=== PATIENT | male | born 1930 | race Caucasian/White ===

== ENCOUNTER 2018-03-17 05:08 | Inpatient (IN) | payer MEDICARE ==
[2018-03-17] MEDS ORDERED: SODIUM CHLORIDE 0.9% 500 ML IV ONE ×2 (05:15→06:07)
--- NOTE | 2018-03-17 05:18 | ED ---
General Adult HPI - General Stated complaint: abd pain Time Seen by Provider: 03/17/18 05:11 Source: EMS, RN notes reviewed, old records reviewed - History of Present Illness Initial comments: 87-year-old male presents with altered mental status. Patient woke from sleep, complained of abdominal pain. Patient's spouse called EMS as patient seemed more confused than usual. He does have history of dementia. Patient is unable to verbalize of pain complaint at the time my evaluation. Exact baseline mental status is unknown but patient does have reported history of dementia. EMS report hypotension during transport. Other vital signs are stable. - Related Data Home Medications Medication Instructions Recorded Confirmed ALPRAZolam [Xanax] 0.25 mg PO DAILY PRN 03/17/18 03/17/18 Apixaban [Eliquis] 2.5 mg PO BID 03/17/18 03/17/18 Finasteride [Proscar] 5 mg PO HS 03/17/18 03/17/18 Lisinopril [Zestril] 30 mg PO HS 03/17/18 03/17/18 Mirabegron [Myrbetriq] 50 mg PO DAILY 03/17/18 03/17/18 Rivastigmine [Rivastigmine 1 patch TRANSDERM DAILY 03/17/18 03/17/18 4.6MG/24Hr] Simvastatin 40 mg PO HS 03/17/18 03/17/18 Tamsulosin [Flomax] 0.4 mg PO HS 03/17/18 03/17/18 Allergies Allergy/AdvReac Type Severity Reaction Status Date / Time No Known Allergies Allergy Verified 03/17/18 05:44 Review of Systems ROS Statement: Those systems with pertinent positive or pertinent negative responses have been documented in the HPI. ROS Other: All systems not noted in ROS Statement are negative. Past Medical History Past Medical History: Coronary Artery Disease (CAD), Dementia General Exam General appearance: lethargic Head exam: Present: atraumatic, normocephalic Eye exam: Present: normal appearance, PERRL ENT exam: Present: mucous membranes dry Neck exam: Present: normal inspection. Absent: tenderness, meningismus Respiratory exam: Present: normal lung sounds bilaterally. Absent: respiratory distress, wheezes Cardiovascular Exam: Present: regular rate, normal rhythm GI/Abdominal exam: Present: soft. Absent: distended, tenderness, guarding, rebound Extremities exam: Present: normal inspection, normal capillary refill. Absent: pedal edema Neurological exam: Present: other (Patient exam nonfocal, he is moving all extremities symmetrically). Absent: oriented X3 Skin exam: Present: warm, dry, intact. Absent: cyanosis Course Vital Signs 03/17/18 03/17/18 03/17/18 05:10 05:35 06:13 Temperature 96.8 F L Pulse Rate 69 69 62 Pulse Rate [ Bilateral Supine Radial] Respiratory 18 18 18 Rate Blood Pressure 71/49 88/52 129/68 O2 Sat by Pulse 99 97 99 Oximetry 03/17/18 03/17/18 06:18 06:58 Temperature Pulse Rate 65 Pulse Rate [ 70 Bilateral Supine Radial] Respiratory 18 Rate Blood Pressure 124/62 O2 Sat by Pulse 100 Oximetry - Reevaluation(s) Reevaluation #1: 03/17/18 05:41 Further history obtained from the patient's spouse who states he was complaining of abdominal pain and back pain at the onset of symptoms. She reports he was diaphoretic. EKG Findings - EKG Comments: EKG Findings:: EKG: Ventricular paced rhythm, rate of 63, QRS duration 172, QTC 507 Medical Decision Making - Medical Decision Making 87-year-old male presenting with altered mental status, hypotension, and abdominal pain and back pain. Patient has history of abdominal aortic aneurysm , CT angiography is ordered. Results show infrarenal abdominal aortic aneurysm with extravasation of contrast and a large volume of blood in the right hemiabdomen. Dr. Munroe is immediately called, initially plan is for transfer , however after discussion with the family it is decided that no surgical intervention will be pursued at this time. Patient will be admitted for monitoring and comfort measures. Patient's is at bedside and agreeable with this plan. Dr. Munroe will be on consult. - Lab Data Result diagrams: 03/17/18 05:20 03/17/18 05:20 Lab Results 03/17/18 03/17/18 03/17/18 Range/Units 05:18 05:20 05:20 WBC 9.0 (3.8-10.6) k/uL RBC 3.69 L (4.30-5.90) m/uL Hgb 11.9 L (13.0-17.5) gm/dL Hct 35.5 L (39.0-53.0) % MCV 96.0 (80.0-100.0) fL MCH 32.3 (25.0-35.0) pg MCHC 33.6 (31.0-37.0) g/dL RDW 13.4 (11.5-15.5) % Plt Count 102 L (150-450) k/uL Neutrophils % 73 % Lymphocytes % 19 % Monocytes % 5 % Eosinophils % 1 % Basophils % 0 % Neutrophils # 6.6 (1.3-7.7) k/uL Lymphocytes # 1.7 (1.0-4.8) k/uL Monocytes # 0.5 (0-1.0) k/uL Eosinophils # 0.1 (0-0.7) k/uL Basophils # 0.0 (0-0.2) k/uL PT (9.0-12.0) sec INR (<1.2) APTT (22.0-30.0) sec VBG pH (7.31-7.41) VBG pCO2 (37-51) mmHg VBG HCO3 (24-28) mmol/L Sodium (137-145) mmol/L Potassium (3.5-5.1) mmol/L Chloride (98-107) mmol/L Carbon Dioxide (22-30) mmol/L Anion Gap mmol/L BUN (9-20) mg/dL Creatinine (0.66-1.25) mg/dL Est GFR (CKD-EPI)AfAm (>60 ml/min/1.73 sqM) Est GFR (CKD-EPI)NonAf (>60 ml/min/1.73 sqM) Glucose (74-99) mg/dL POC Glucose (mg/dL) 181 H (75-99) mg/dL POC Glu [employer]er Anju Mandel Plasma Lactic Acid Lucius (0.7-2.0) mmol/L Calcium (8.4-10.2) mg/dL Total Bilirubin (0.2-1.3) mg/dL AST (17-59) U/L ALT (21-72) U/L Alkaline Phosphatase (38-126) U/L Total Creatine Kinase 103 (55-170) U/L CK-MB (CK-2) 3.2 H* (0.0-2.4) ng/mL CK-MB (CK-2) Rel Index 3.1 Troponin I 0.065 H* (0.000-0.034) ng/mL Total Protein (6.3-8.2) g/dL Albumin (3.5-5.0) g/dL Urine Color Urine Appearance (Clear) Urine pH (5.0-8.0) Ur Specific [place] (1.001-1.035) Urine Protein (Negative) Urine Glucose (UA) (Negative) Urine Ketones (Negative) Urine Blood (Negative) Urine Nitrite (Negative) Urine Bilirubin (Negative) Urine Urobilinogen (<2.0) mg/dL Ur Leukocyte Esterase (Negative) Urine RBC (0-5) /hpf Urine WBC (0-5) /hpf Ur Squamous Epith Cells (0-4) /hpf Amorphous Sediment (None) /hpf Hyaline Casts (0-2) /lpf Urine Mucus (None) /hpf Urine Opiates Screen (NotDetected) Ur Oxycodone Screen (NotDetected) Urine Methadone Screen (NotDetected) Ur Propoxyphene Screen (NotDetected) Ur Barbiturates Screen (NotDetected) U Tricyclic Antidepress (NotDetected) Ur Phencyclidine Scrn (NotDetected) Ur Amphetamines Screen (NotDetected) U Methamphetamines Scrn (NotDetected) U Benzodiazepines Scrn (NotDetected) Urine Cocaine Screen (NotDetected) U Marijuana (THC) Screen (NotDetected) 03/17/18 03/17/18 03/17/18 Range/Units 05:20 05:20 05:20 WBC (3.8-10.6) k/uL RBC (4.30-5.90) m/uL Hgb (13.0-17.5) gm/dL Hct (39.0-53.0) % MCV (80.0-100.0) fL MCH (25.0-35.0) pg MCHC (31.0-37.0) g/dL RDW (11.5-15.5) % Plt Count (150-450) k/uL Neutrophils % % Lymphocytes % % Monocytes % % Eosinophils % % Basophils % % Neutrophils # (1.3-7.7) k/uL Lymphocytes # (1.0-4.8) k/uL Monocytes # (0-1.0) k/uL Eosinophils # (0-0.7) k/uL Basophils # (0-0.2) k/uL PT 11.9 (9.0-12.0) sec INR 1.3 H (<1.2) APTT 21.6 L (22.0-30.0) sec VBG pH (7.31-7.41) VBG pCO2 (37-51) mmHg VBG HCO3 (24-28) mmol/L Sodium 136 L (137-145) mmol/L Potassium 4.1 (3.5-5.1) mmol/L Chloride 106 (98-107) mmol/L Carbon Dioxide 21 L (22-30) mmol/L Anion Gap 9 mmol/L BUN 23 H (9-20) mg/dL Creatinine 1.20 (0.66-1.25) mg/dL Est GFR (CKD-EPI)AfAm 63 (>60 ml/min/1.73 sqM) Est GFR (CKD-EPI)NonAf 54 (>60 ml/min/1.73 sqM) Glucose 188 H (74-99) mg/dL POC Glucose (mg/dL) (75-99) mg/dL POC Glu [employer] As[employer]er ID Plasma Lactic Acid Lucius 3.3 H* (0.7-2.0) mmol/L Calcium 8.2 L (8.4-10.2) mg/dL Total Bilirubin 0.7 (0.2-1.3) mg/dL AST 28 (17-59) U/L ALT 39 (21-72) U/L Alkaline Phosphatase 41 (38-126) U/L Total Creatine Kinase (55-170) U/L CK-MB (CK-2) (0.0-2.4) ng/mL CK-MB (CK-2) Rel Index Troponin I (0.000-0.034) ng/mL Total Protein 5.1 L (6.3-8.2) g/dL Albumin 3.0 L (3.5-5.0) g/dL Urine Color Urine Appearance (Clear) Urine pH (5.0-8.0) Ur Specific [place] (1.001-1.035) Urine Protein (Negative) Urine Glucose (UA) (Negative) Urine Ketones (Negative) Urine Blood (Negative) Urine Nitrite (Negative) Urine Bilirubin (Negative) Urine Urobilinogen (<2.0) mg/dL Ur Leukocyte Esterase (Negative) Urine RBC (0-5) /hpf Urine WBC (0-5) /hpf Ur Squamous Epith Cells (0-4) /hpf Amorphous Sediment (None) /hpf Hyaline Casts (0-2) /lpf Urine Mucus (None) /hpf Urine Opiates Screen (NotDetected) Ur Oxycodone Screen (NotDetected) Urine Methadone Screen (NotDetected) Ur Propoxyphene Screen (NotDetected) Ur Barbiturates Screen (NotDetected) U Tricyclic Antidepress (NotDetected) Ur Phencyclidine Scrn (NotDetected) Ur Amphetamines Screen (NotDetected) U Methamphetamines Scrn (NotDetected) U Benzodiazepines Scrn (NotDetected) Urine Cocaine Screen (NotDetected) U Marijuana (THC) Screen (NotDetected) 03/17/18 03/17/18 Range/Units 05:20 05:20 WBC (3.8-10.6) k/uL RBC (4.30-5.90) m/uL Hgb (13.0-17.5) gm/dL Hct (39.0-53.0) % MCV (80.0-100.0) fL MCH (25.0-35.0) pg MCHC (31.0-37.0) g/dL RDW (11.5-15.5) % Plt Count (150-450) k/uL Neutrophils % % Lymphocytes % % Monocytes % % Eosinophils % % Basophils % % Neutrophils # (1.3-7.7) k/uL Lymphocytes # (1.0-4.8) k/uL Monocytes # (0-1.0) k/uL Eosinophils # (0-0.7) k/uL Basophils # (0-0.2) k/uL PT (9.0-12.0) sec INR (<1.2) APTT (22.0-30.0) sec VBG pH 7.28 L (7.31-7.41) VBG pCO2 53 H (37-51) mmHg VBG HCO3 24 (24-28) mmol/L Sodium (137-145) mmol/L Potassium (3.5-5.1) mmol/L Chloride (98-107) mmol/L Carbon Dioxide (22-30) mmol/L Anion Gap mmol/L BUN (9-20) mg/dL Creatinine (0.66-1.25) mg/dL Est GFR (CKD-EPI)AfAm (>60 ml/min/1.73 sqM) Est GFR (CKD-EPI)NonAf (>60 ml/min/1.73 sqM) Glucose (74-99) mg/dL POC Glucose (mg/dL) (75-99) mg/dL POC Glu [employer]ical [employer] As[employer]er ID Plasma Lactic Acid Lucius (0.7-2.0) mmol/L Calcium (8.4-10.2) mg/dL Total Bilirubin (0.2-1.3) mg/dL AST (17-59) U/L ALT (21-72) U/L Alkaline Phosphatase (38-126) U/L Total Creatine Kinase (55-170) U/L CK-MB (CK-2) (0.0-2.4) ng/mL CK-MB (CK-2) Rel Index Troponin I (0.000-0.034) ng/mL Total Protein (6.3-8.2) g/dL Albumin (3.5-5.0) g/dL Urine Color Yellow Urine Appearance Cloudy (Clear) Urine pH 5.5 (5.0-8.0) Ur Specific [place] 1.014 (1.001-1.035) Urine Protein 2+ H (Negative) Urine Glucose (UA) Negative (Negative) Urine Ketones Trace H (Negative) Urine Blood Negative (Negative) Urine Nitrite Negative (Negative) Urine Bilirubin Negative (Negative) Urine Urobilinogen <2.0 (<2.0) mg/dL Ur Leukocyte Esterase Negative (Negative) Urine RBC 1 (0-5) /hpf Urine WBC 1 (0-5) /hpf Ur Squamous Epith Cells 4 (0-4) /hpf Amorphous Sediment Occasional H (None) /hpf Hyaline Casts 50 H (0-2) /lpf Urine Mucus Moderate H (None) /hpf Urine Opiates Screen Not Detected (NotDetected) Ur Oxycodone Screen Not Detected (NotDetected) Urine Methadone Screen Not Detected (NotDetected) Ur Propoxyphene Screen Not Detected (NotDetected) Ur Barbiturates Screen Not Detected (NotDetected) U Tricyclic Antidepress Not Detected (NotDetected) Ur Phencyclidine Scrn Not Detected (NotDetected) Ur Amphetamines Screen Not Detected (NotDetected) U Methamphetamines Scrn Not Detected (NotDetected) U Benzodiazepines Scrn Detected H (NotDetected) Urine Cocaine Screen Not Detected (NotDetected) U Marijuana (THC) Screen Not Detected (NotDetected) Critical Care Time Critical Care Time: Yes Total Critical Care Time: 35 Disposition Clinical Impression: Leaking abdominal aortic aneurysm Disposition: ADMITTED IP TO THIS [facility] Condition: Poor Is patient prescribed a controlled substance at d/c from ED?: No Referrals: None,Stated [REFERRING] - 1-2 days Decision to Admit Reason: Admit from EC Decision Date: 03/17/18 Decision Time: 07:15
[2018-03-17 05:20] VITALS: RESP 18; TEMP 96.8
[2018-03-17 05:22] LABS: Glucose,Whole Blood 181 mg/dL (75-99)
[2018-03-17 05:41] LABS: Basophils % (A) 0 %; Eosinophils # (A) 0.1 k/uL (0-0.7); Eosinophils % (A) 1 %; HCT 35.5 % (39.0-53.0); HGB 11.9 gm/dL (13.0-17.5); Lymphocytes # (A) 1.7 k/uL (1.0-4.8); Lymphocytes % (A) 19 %; MCH 32.3 pg (25.0-35.0); MCHC 33.6 g/dL (31.0-37.0); Mean Platelet Volume 7.7; Monocytes # (A) 0.5 k/uL (0-1.0); Monocytes % (A) 5 %; Neutrophils # (A) 6.6 k/uL (1.3-7.7); Neutrophils % (A) 73 %; Platelet Count 102 k/uL (150-450); RBC 3.69 m/uL (4.30-5.90); RDW 13.4 % (11.5-15.5)
[2018-03-17 05:51] LABS: Calcium 8.2 mg/dL (8.4-10.2); Potassium 4.1 mmol/L (3.5-5.1); Total Bilirubin 0.7 mg/dL (0.2-1.3); Total Protein 5.1 g/dL (6.3-8.2)
[2018-03-17 05:56] LABS: INR 1.3 (<1.2); Prothrombin Time 11.9 sec (9.0-12.0)
[2018-03-17 05:59] LABS: Amorphous Sediment,Urine Occasional /hpf; Appearance,Urine Cloudy (Clear); Bilirubin,Urine Negative (Negative); Blood,Urine Negative (Negative); Color,Urine Yellow; Glucose,Urine (UA) Negative (Negative); Hyaline Casts,Urine 50 /lpf (0-2); Ketones,Urine Trace (Negative); Leukocyte Esterase,Urine Negative (Negative); Mucus,Urine Moderate /hpf; Nitrite,Urine Negative (Negative); PH, Urine 5.5 (5.0-8.0); Protein,Urine 2+ (Negative); RBC,Urine 1 /hpf (0-5); Specific Gravity,Urine 1.014 (1.001-1.035); Squamous Epithelial Cell,Urine 4 /hpf (0-4); Urobilinogen,Urine <2.0 mg/dL (<2.0); WBC,Urine 1 /hpf (0-5)
[2018-03-17 06:08] LABS: VBG PH 7.28 (7.31-7.41)
[2018-03-17 06:12] LABS: Partial Thromboplastin Time 21.6 sec (22.0-30.0)
[2018-03-17 06:20] LABS: Creatine Kinase MB 3.2 ng/mL (0.0-2.4); Troponin I 0.065 ng/mL (0.000-0.034)
--- NOTE | 2018-03-17 06:23 | CT ---
EXAM: CT Head Without Intravenous Contrast CLINICAL HISTORY: Altered mental status TECHNIQUE: Axial computed tomography images of the head/brain without intravenous contrast. CTDI is 57.40 mGy and DLP is 1047.1 mGy-cm. This CT exam was performed using one or more of the following dose reduction techniques: automated exposure control, adjustment of the mA and/or kV according to patient size, and/or use of iterative reconstruction technique. COMPARISON: No relevant prior studies available. FINDINGS: Brain: No acute infarct, hemorrhage, mass or edema. Chronic small vessel ischemic disease and senescent changes. Ventricles: Unremarkable. No ventriculomegaly. Bones/joints: Unremarkable. No acute fracture. Soft tissues: Unremarkable. Sinuses: Mild mucosal thickening in the paranasal sinuses. Mastoid air cells: Unremarkable as visualized. No mastoid effusion. IMPRESSION: No acute findings.
[2018-03-17 06:27] LABS: Amphetamine Screen,Urine Not Detected (NotDetected); Barbiturate Screen,Urine Not Detected (NotDetected); Benzodiazepines Screen,Urine Detected (NotDetected); Cocaine Screen,Urine Not Detected (NotDetected); Methadone Screen, Urine Not Detected (NotDetected); Opiate Screen,Urine Not Detected (NotDetected); Oxycodone Screen, Urine Not Detected (NotDetected); Phencyclidine Screen,Urine Not Detected (NotDetected); Tricyclic Antidepressant,Urine Not Detected (NotDetected); Urn Cannabinoid Scrn Not Detected (NotDetected)
[2018-03-17] MEDS ORDERED: MORPHINE SULFATE 2 MG/ML SYRINGE IVP STA (06:45)
--- NOTE | 2018-03-17 06:52 | CT ---
EXAM: CT Chest Without And With Intravenous Contrast CLINICAL HISTORY: Chest pain TECHNIQUE: Axial computed tomography images of the chest without and with intravenous contrast during the arterial phase of enhancement. CTDI is 9. 90 7.1, 140.60 mGy and DLP is 1020.90 mGy-cm. This CT exam was performed using one or more of the following dose reduction techniques: automated exposure control, adjustment of the mA and/or kV according to patient size, and/or use of iterative reconstruction technique. COMPARISON: . FINDINGS: Pulmonary arteries: Unremarkable. No pulmonary embolism. Aorta: No thoracic aortic dissection or aneurysm. Lungs: Unremarkable. No mass. No consolidation. Pleural space: Trace right-sided pleural effusion. No pneumothorax. Heart: Heart is enlarged. Calcification of the coronary arteries. Aortic valve prosthesis. No significant pericardial effusion. No evidence of RV dysfunction. Bones/joints: Evidence of prior median sternotomy. No acute osseous abnormality. No dislocation. Soft tissues: Unremarkable. Lymph nodes: Unremarkable. No enlarged lymph nodes. Tubes, lines and devices: Cardiac pacemaker is noted. IMPRESSION: 1. No thoracic aortic dissection or aneurysm. 2. Trace right-sided pleural effusion. EXAM: CT Abdomen and Pelvis With Intravenous Contrast CLINICAL HISTORY: Chest pain TECHNIQUE: Axial computed tomography images of the abdomen and pelvis with intravenous contrast. CTDI is 9.90 7.1, 140.60 mGy and DLP is 1020.90 mGy-cm. This CT exam was performed using one or more of the following dose reduction techniques: automated exposure control, adjustment of the mA and/or kV according to patient size, and/or use of iterative reconstruction technique. COMPARISON: No relevant prior studies available. FINDINGS: Lung bases: Unremarkable. No mass. No consolidation. ABDOMEN: Liver: Unremarkable. Gallbladder and bile ducts: Unremarkable. Pancreas: Unremarkable. Spleen: Unremarkable. Adrenals: Unremarkable. Kidneys and ureters: Cysts within both kidneys. Stomach and bowel: Unremarkable. PELVIS: Appendix: No findings to suggest acute appendicitis. Bladder: Unremarkable. Reproductive: Unremarkable as visualized. ABDOMEN and PELVIS: Intraperitoneal space: Unremarkable. Bones/joints: Degenerative changes of the spine. No acute fracture. No dislocation. Soft tissues: Unremarkable. Vasculature: Infrarenal abdominal aortic aneurysm with vascular stent graft extending into the common iliac arteries. There is extravasation of contrast beyond the wall of the aneurysm with large volume of blood products within the right hemiabdomen suggesting rupture. Lymph nodes: Unremarkable. IMPRESSION: Infrarenal abdominal aortic aneurysm with vascular stent graft extending into the common iliac arteries. There is extravasation of contrast beyond the wall of the aneurysm with large volume of blood products within the right hemiabdomen suggesting rupture. [employer] 03/17/18 06:52 Call Doctor Regarding Above results, called Dr. Lee on 03/17 06:52 (-04:00)
[2018-03-17 07:04] VITALS: BP 124/62; PULSE 65
[2018-03-17] MEDS ORDERED: NALOXONE 0.4 MG/ML 1 ML VIAL IV PRN (07:09)
[2018-03-17] MEDS ORDERED: MORPHINE SULFATE 2 MG/ML SYRINGE IV PRN (07:09)
--- NOTE | 2018-03-17 07:13 | XR ---
EXAMINATION TYPE: XR chest 2V DATE OF EXAM: 03/17/2018 COMPARISON: None HISTORY: 87-year-old male confusion, altered mental status TECHNIQUE: AP and lateral views FINDINGS: Heart mildly enlarged. Median sternotomy wires are present. Prosthetic aortic valve. Left anterior ch est wall pacemaker generator with right ventricular lead. Mild atherosclerotic arch calcifications. S ome minimal patchy bibasilar densities likely represent atelectasis. Pulmonary vasculature within nor mal limits. No consolidation or significant pleural effusion otherwise seen. IMPRESSION: Mild cardiomegaly. Minimal bibasilar patchy atelectasis. No acute process seen.
[2018-03-17] MEDS ORDERED: SODIUM CHLORIDE 0.9% 500 ML IV SCH (08:45)
[2018-03-17] MEDS ORDERED: MORPHINE SULFATE (100 MG/2 ML) 100 MG in SODIUM CHLORIDE 0.9% 100 ML IV SCH (08:45)
--- NOTE | 2018-03-17 08:53 | CONS ---
CONSULTATION This patient is an 87-year-old gentleman who came to the emergency room with history of abdominal pain and back pain. The patient was brought in by the EMS to the emergency room. This patient is well known to me from the past. I did aortic stent graft about 14 years ago. He has been coming to the office on a regular basis. He developed sudden onset of back pain and abdominal pain with hypertension and the patient was brought into the emergency room and CT scan showed ruptured abdominal aortic aneurysm. The patient has a history of dementia, history of coronary artery disease. PHYSICAL EXAMINATION: On examination, patient was seen in his room. His neck is supple. Chest is clear. Abdomen: There is tenderness. Femoral pulses are palpable CT scan reviewed. Discussed with the and the family. Family does not want any major surgical intervention. They want comfort care. I have discussed all the options with the patient. Family decided not to proceed for any major surgical intervention. We will follow with you. MMLENCHO / BAHMAN: [id number] /
--- NOTE | 2018-03-18 10:22 | P.HPIM ---
History of Present Illness H&P Date: 03/17/18 Chief Complaint: Abdomen and back pain This is an 87-year-old male patient of Dr. Pemberton with past medical history for atrial fibrillation, coronary artery disease, dementia, hypertension , hyperlipidemia, aortic valve stenosis status post replacement in 2003, benign prostatic hypertrophy, bladder cancer with resection, abdominal aortic aneurysm in 2003 status post stent. Patient's states that he woke up at 3 in the morning complaining of excruciating pain in his abdomen and back as well as being wet and clammy. Patient was brought immediately by EMS and [facility] emergency [place] where he underwent a CAT scan of the chest that showed no thoracic aortic dissection or aneurysm. Trace right-sided pleural effusion. CT of the abdomen and pelvis with contrast revealed infrarenal abdominal aortic aneurysm with vascular stent graft extending into the common iliac arteries. There is extravasation of contrast beyond the wall of the aneurysm with large volume of blood products within the right hemiabdomen suggesting rupture. CT of the brain showed no acute findings. Patient was seen by Dr. Munroe and reviewed with the family results. They do not want any major surgical intervention. Patient was admitted to the oncology unit and consult with [facility]. Patient's , son and daughter are at the bedside. Review of Systems ROS unobtainable: due to mental status Past Medical History Past Medical History: Atrial Fibrillation, Coronary Artery Disease (CAD), Cancer , Dementia, Hyperlipidemia, Hypertension, Prostate Disorder Additional Past Medical History / Comment(s): 1994 [place]/PTCA, 2003 abdominal aortic aneurysm with stenting, aortic valve stenosis with replacement, BPH, bladder cancer with removal, bradycardia with pacemaker. History of Any Multi-Drug Resistant Organisms: None Reported Past Surgical History: Bladder Surgery, Cardiac Valve Replacement, Heart Catheterization, Hernia Repair, Joint Replacement, Pacemaker, Prostate Surgery Additional Past Surgical History / Comment(s): aortic valve replacement; abdomen aortic stent in 2003, PTCA 1994, cardiac cath/MELANIA 2005, pacemaker 2015, colonoscopy, bilateral total hip replacements, prostate surgery, bladder cancer removal, inguinal hernia repairs. Past Anesthesia/Blood Transfusion Reactions: No Reported Reaction Type of Cardiac Device: Permanent Pacemaker Device Placement Date:: 2015 Smoking Status: Former smoker Additional Past Alcohol Use History / Comment(s): Patient was a smoker from 1965 and quit in 1975. Patient lives at home with his of 42 years. He does have dementia but is normally active. He no longer drives. His spouse does all the driving. He uses no assistive devices. - Past Family History Mother Additional Family Medical History / Comment(s): Mother of a cerebral aneurysm Sister(s) Family Medical History: Cancer Additional Family Medical History / Comment(s): Sister had breast cancer. Medications and Allergies Home Medications Medication Instructions Recorded Confirmed Type ALPRAZolam [Xanax] 0.25 mg PO BID PRN 03/17/18 03/17/18 History Apixaban [Eliquis] 2.5 mg PO BID 03/17/18 03/17/18 History Finasteride [Proscar] 5 mg PO HS 03/17/18 03/17/18 History Lisinopril [Zestril] 30 mg PO HS 03/17/18 03/17/18 History Mirabegron [Myrbetriq] 50 mg PO DAILY 03/17/18 03/17/18 History Rivastigmine [Rivastigmine 1 patch TRANSDERM DAILY 03/17/18 03/17/18 History 4.6MG/24Hr] Simvastatin 40 mg PO HS 03/17/18 03/17/18 History Tamsulosin [Flomax] 0.4 mg PO HS 03/17/18 03/17/18 History Allergies Allergy/AdvReac Type Severity Reaction Status Date / Time No Known Allergies Allergy Verified 03/17/18 14:04 Physical Exam Vitals: Vital Signs Temp Pulse Pulse Resp BP Pulse Ox 03/17/18 06:58 65 18 124/62 100 03/17/18 06:18 70 03/17/18 06:13 62 18 129/68 99 03/17/18 05:35 69 18 88/52 97 03/17/18 05:10 96.8 F L 69 18 71/49 99 Intake and Output 03/16/18 03/17/18 03/17/18 22:59 06:59 14:59 Intake Total 2.397 Balance 2.397 Intake: Intake, IV Titration 2.397 Amount Morphine Sulfate (100 mg/ 2.397 2 ml) 100 mg In Sodium Chloride 0.9% 100 ml @ 1 MG/HR 1.02 mls/hr IV . Q24H [facility] Rx#:[id number] Other: Weight 92.986 kg Gen: This is an 87-year-old male patient. He is in bed appears to be comfortable. HEENT: Head is atraumatic, normocephalic. NECK: Supple. LUNGS: Clear to auscultation. No wheezes or rhonchi. No intercostal retractions. HEART: Regular rate and rhythm. No murmur. ABDOMEN: Soft. + tenderness. No bruising noted to the flank areas. EXTREMITIES: No pedal edema. No calf tenderness. NEUROLOGICAL: Patient is arousable minimally to verbal stimuli.. Results CBC & Chem 7: 03/17/18 05:20 03/17/18 05:20 Labs: Abnormal Lab Results - Last 24 Hours (Table) 03/17/18 03/17/18 03/17/18 Range/Units 05:18 05:20 05:20 RBC 3.69 L (4.30-5.90) m/uL Hgb 11.9 L (13.0-17.5) gm/dL Hct 35.5 L (39.0-53.0) % Plt Count 102 L (150-450) k/uL INR (<1.2) APTT (22.0-30.0) sec VBG pH (7.31-7.41) VBG pCO2 (37-51) mmHg Sodium (137-145) mmol/L Carbon Dioxide (22-30) mmol/L BUN (9-20) mg/dL Glucose (74-99) mg/dL POC Glucose (mg/dL) 181 H (75-99) mg/dL Plasma Lactic Acid Lucius (0.7-2.0) mmol/L Calcium (8.4-10.2) mg/dL CK-MB (CK-2) 3.2 H* (0.0-2.4) ng/mL Troponin I 0.065 H* (0.000-0.034) ng/mL Total Protein (6.3-8.2) g/dL Albumin (3.5-5.0) g/dL Urine Protein (Negative) Urine Ketones (Negative) Amorphous Sediment (None) /hpf Hyaline Casts (0-2) /lpf Urine Mucus (None) /hpf U Benzodiazepines Scrn (NotDetected) 03/17/18 03/17/18 03/17/18 Range/Units 05:20 05:20 05:20 RBC (4.30-5.90) m/uL Hgb (13.0-17.5) gm/dL Hct (39.0-53.0) % Plt Count (150-450) k/uL INR 1.3 H (<1.2) APTT 21.6 L (22.0-30.0) sec VBG pH (7.31-7.41) VBG pCO2 (37-51) mmHg Sodium 136 L (137-145) mmol/L Carbon Dioxide 21 L (22-30) mmol/L BUN 23 H (9-20) mg/dL Glucose 188 H (74-99) mg/dL POC Glucose (mg/dL) (75-99) mg/dL Plasma Lactic Acid Lucius 3.3 H* (0.7-2.0) mmol/L Calcium 8.2 L (8.4-10.2) mg/dL CK-MB (CK-2) (0.0-2.4) ng/mL Troponin I (0.000-0.034) ng/mL Total Protein 5.1 L (6.3-8.2) g/dL Albumin 3.0 L (3.5-5.0) g/dL Urine Protein (Negative) Urine Ketones (Negative) Amorphous Sediment (None) /hpf Hyaline Casts (0-2) /lpf Urine Mucus (None) /hpf U Benzodiazepines Scrn (NotDetected) 03/17/18 03/17/18 Range/Units 05:20 05:20 RBC (4.30-5.90) m/uL Hgb (13.0-17.5) gm/dL Hct (39.0-53.0) % Plt Count (150-450) k/uL INR (<1.2) APTT (22.0-30.0) sec VBG pH 7.28 L (7.31-7.41) VBG pCO2 53 H (37-51) mmHg Sodium (137-145) mmol/L Carbon Dioxide (22-30) mmol/L BUN (9-20) mg/dL Glucose (74-99) mg/dL POC Glucose (mg/dL) (75-99) mg/dL Plasma Lactic Acid Lucius (0.7-2.0) mmol/L Calcium (8.4-10.2) mg/dL CK-MB (CK-2) (0.0-2.4) ng/mL Troponin I (0.000-0.034) ng/mL Total Protein (6.3-8.2) g/dL Albumin (3.5-5.0) g/dL Urine Protein 2+ H (Negative) Urine Ketones Trace H (Negative) Amorphous Sediment Occasional H (None) /hpf Hyaline Casts 50 H (0-2) /lpf Urine Mucus Moderate H (None) /hpf U Benzodiazepines Scrn Detected H (NotDetected) Thrombosis Risk Factor Assmnt - DVT/VTE Prophylaxis DVT/VTE Prophylaxis: Contraindicated - See note - Choose All That Apply Any of the Below Risk Factors Present?: Yes Each Factor Represents 1 point: Medical pt on bed rest, Obesity (BMI >25) Other Risk Factors: Yes Each Risk Factor Represents 2 Points: Patient confined to bed, Malignancy Each Risk Factor Represents 3 Points: Age 75 years or older Other congenital or acquired thrombophilia - If yes, enter type in comment: No Thrombosis Risk Factor Assessment Total Risk Factor Score: 9 Thrombosis Risk Factor Assessment Level: High Risk Assessment and Plan Plan: 1. Ruptured abdominal aortic aneurysm with history of previous stent in 2003. Patient has been started on morphine drip. [place] catheter to be placed. Consult with [facility]. 2. Hypertension. 3. Hyperlipidemia. 4. Dementia. 5. Paroxysmal Atrial fibrillation. 6. Bradycardia status post pacemaker. 7. Coronary artery disease and valvular heart disease status post aortic valve replacement. 8. Benign prostatic hypertrophy. 9. History of bladder cancer with resection. Patient will be admitted to the hospital for a minimum of 2 night stay. Discharge plan: [facility] Impression and plan of care have been directed as dictated by the signing physician. Aleja Daniel nurse practitioner acting as scribe for signing physician.
== END 2018-03-17 13:24 | disposition hospice, inpatient (51) | DRG 301 ==
LOC: EC 05:08 → 5ONC 07:09
PROVIDERS: ADMIT Internal Medicine Geriatric Medicine; ATTEND Internal Medicine Geriatric Medicine
DX: I71.3 Abdominal aortic aneurysm, ruptured (principal); I25.10 Atherosclerotic heart disease of native coronary artery without angina pectoris; F03.90 Unspecified dementia, unspecified severity, without behavioral disturbance, psychotic disturbance, mood disturbance, and anxiety; I95.9 Hypotension, unspecified; I48.0 Paroxysmal atrial fibrillation; Z66 Do not resuscitate; Z51.5 Encounter for palliative care; I10 Essential (primary) hypertension; E78.5 Hyperlipidemia, unspecified; I25.2 Old myocardial infarction; N40.0 Benign prostatic hyperplasia without lower urinary tract symptoms; Z79.01 Long term (current) use of anticoagulants; Z79.899 Other long term (current) drug therapy; Z95.828 Presence of other vascular implants and grafts; Z85.51 Personal history of malignant neoplasm of bladder; Z95.2 Presence of prosthetic heart valve; Z87.891 Personal history of nicotine dependence; Z96.643 Presence of artificial hip joint, bilateral; Z95.0 Presence of cardiac pacemaker; Z82.49 Family history of ischemic heart disease and other diseases of the circulatory system; Z80.3 Family history of malignant neoplasm of breast
CPT/HCPCS: 36415; 70450; 71046; 71275; 74174; 80053; 80306; 81001; 82550; 82553; 82803; 83605; 84484; 85025; 85610; 85730; 93005; 96361; 96374; 99291

== ENCOUNTER 2018-03-17 13:27 | Inpatient (IN) | payer OTHER ==
[2018-03-17 14:33] VITALS: BMI 23.5
[2018-03-17] MEDS: MORPHINE SULFATE (100 MG/2 ML) 100 MG in SODIUM CHLORIDE 0.9% 100 ML IV SCH (18:13)
[2018-03-17] MEDS: SODIUM CHLORIDE 0.9% 1,000 ML IV SCH (18:13)
[2018-03-18 04:55] VITALS: RESP 15
--- NOTE | 2018-03-18 10:25 | P.HPIM ---
History of Present Illness H&P Date: 03/18/18 HISTORY AND PHYSICAL AND DISCHARGE SUMMARY: This is an 87-year-old male patient of Dr. Pemberton with past medical history for atrial fibrillation, coronary artery disease, dementia, hypertension , hyperlipidemia, aortic valve stenosis status post replacement in 2003, benign prostatic hypertrophy, bladder cancer with resection, abdominal aortic aneurysm in 2003 status post stent. Patient's states that he woke up at 3 in the morning complaining of excruciating pain in his abdomen and back as well as being wet and clammy. Patient was brought immediately by EMS and [facility] emergency [place] where he underwent a CAT scan of the chest that showed no thoracic aortic dissection or aneurysm. Trace right-sided pleural effusion. CT of the abdomen and pelvis with contrast revealed infrarenal abdominal aortic aneurysm with vascular stent graft extending into the common iliac arteries. There is extravasation of contrast beyond the wall of the aneurysm with large volume of blood products within the right hemiabdomen suggesting rupture. CT of the brain showed no acute findings. Patient was seen by Dr. Munroe and reviewed with the family results. They did not want any major surgical intervention. Patient was admitted to the oncology unit and transition to [facility] care. Review of Systems ROS unobtainable: due to mental status Past Medical History Past Medical History: Atrial Fibrillation, Coronary Artery Disease (CAD), Cancer , Dementia, Hyperlipidemia, Hypertension, Prostate Disorder Additional Past Medical History / Comment(s): 1994 [place]/PTCA, 2003 abdominal aortic aneurysm with stenting, aortic valve stenosis with replacement, BPH, bladder cancer with removal, bradycardia with pacemaker. History of Any Multi-Drug Resistant Organisms: None Reported Past Surgical History: Bladder Surgery, Cardiac Valve Replacement, Heart Catheterization, Hernia Repair, Joint Replacement, Pacemaker, Prostate Surgery Additional Past Surgical History / Comment(s): aortic valve replacement; abdomen aortic stent in 2003, PTCA 1994, cardiac cath/MELANIA 2005, pacemaker 2015, colonoscopy, bilateral total hip replacements, prostate surgery, bladder cancer removal, inguinal hernia repairs. Past Anesthesia/Blood Transfusion Reactions: No Reported Reaction Type of Cardiac Device: Permanent Pacemaker Device Placement Date:: 2015 Past Psychological History: No Psychological Hx Reported Additional Psychological History / Comment(s): Pt resides with his spouse of 42 yrs. He has dementia. He is normally active, still golfs. He no longer drives , his spouse drives. He uses no assistive device. Smoking Status: Former smoker Past Alcohol Use History: Occasional Additional Past Alcohol Use History / Comment(s): Pt started smoking in 1965 and quit in 1975 Past Drug Use History: None Reported - Past Family History Mother Additional Family Medical History / Comment(s): Mother of a cerebral aneurysm Sister(s) Family Medical History: Cancer Additional Family Medical History / Comment(s): Sister had breast cancer. Medications and Allergies Home Medications Medication Instructions Recorded Confirmed Type ALPRAZolam [Xanax] 0.25 mg PO BID PRN 03/17/18 03/17/18 History Apixaban [Eliquis] 2.5 mg PO BID 03/17/18 03/17/18 History Finasteride [Proscar] 5 mg PO HS 03/17/18 03/17/18 History Lisinopril [Zestril] 30 mg PO HS 03/17/18 03/17/18 History Mirabegron [Myrbetriq] 50 mg PO DAILY 03/17/18 03/17/18 History Rivastigmine [Rivastigmine 1 patch TRANSDERM DAILY 03/17/18 03/17/18 History 4.6MG/24Hr] Simvastatin 40 mg PO HS 03/17/18 03/17/18 History Tamsulosin [Flomax] 0.4 mg PO HS 03/17/18 03/17/18 History Allergies Allergy/AdvReac Type Severity Reaction Status Date / Time No Known Allergies Allergy Verified 03/17/18 14:04 Physical Exam Vitals: Vital Signs Resp 03/18/18 00:00 15 Intake and Output 03/17/18 03/18/18 03/18/18 22:59 06:59 14:59 Intake Total 264 Balance 264 Intake: Intake, IV Titration 264 Amount Morphine Sulfate (100 mg/ 24 2 ml) 100 mg In Sodium Chloride 0.9% 100 ml @ 2 MG/HR 2.04 mls/hr IV . Q24H [facility] Rx#:[id number] Sodium Chloride 0.9% 1, 240 000 ml @ 20 mls/hr IV . Q24H [facility] Rx#:[id number] Oral 0 Other: Voiding Method Diaper Incontinent Incontinent Indwelling Catheter # Voids 0 Gen: This is an 87-year-old male patient. He is in bed appears to be comfortable. HEENT: Head is atraumatic, normocephalic. NECK: Supple. LUNGS: Clear to auscultation. No wheezes or rhonchi. No intercostal retractions. HEART: Regular rate and rhythm. No murmur. ABDOMEN: Soft. + tenderness. No bruising noted to the flank areas. EXTREMITIES: No pedal edema. No calf tenderness. NEUROLOGICAL: Patient is arousable minimally to verbal stimuli.. Thrombosis Risk Factor Assmnt - Choose All That Apply Any of the Below Risk Factors Present?: Yes Each Factor Represents 1 point: Medical pt on bed rest Other Risk Factors: Yes Each Risk Factor Represents 2 Points: Patient confined to bed, Malignancy Each Risk Factor Represents 3 Points: Age 75 years or older Other congenital or acquired thrombophilia - If yes, enter type in comment: No Thrombosis Risk Factor Assessment Total Risk Factor Score: 8 Thrombosis Risk Factor Assessment Level: High Risk Assessment and Plan Plan: 1. Ruptured abdominal aortic aneurysm with history of previous stent in 2003-- - preliminary cause of . 2. Hypertension. 3. Hyperlipidemia. 4. Dementia. 5. Paroxysmal Atrial fibrillation. 6. Bradycardia status post pacemaker. 7. Coronary artery disease and valvular heart disease status post aortic valve replacement. 8. Benign prostatic hypertrophy. 9. History of bladder cancer with resection. Impression and plan of care have been directed as dictated by the signing physician. Aleja Daniel nurse practitioner acting as scribe for signing physician.
[2018-03-18] MEDS: MORPHINE SULFATE (100 MG/2 ML) 100 MG in SODIUM CHLORIDE 0.9% 100 ML IV SCH (15:27)
[2018-03-18] MEDS: SODIUM CHLORIDE 0.9% 1,000 ML IV SCH (17:54)
== END 2018-03-18 23:51 | disposition expired | DRG 951 ==
LOC: 5ONC 13:28
PROVIDERS: ADMIT Internal Medicine Geriatric Medicine; ATTEND Internal Medicine Geriatric Medicine
DX: Z51.5 Encounter for palliative care (principal); I71.3 Abdominal aortic aneurysm, ruptured; E78.5 Hyperlipidemia, unspecified; F03.90 Unspecified dementia, unspecified severity, without behavioral disturbance, psychotic disturbance, mood disturbance, and anxiety; I10 Essential (primary) hypertension; I25.10 Atherosclerotic heart disease of native coronary artery without angina pectoris; I25.2 Old myocardial infarction; I35.0 Nonrheumatic aortic (valve) stenosis; I48.0 Paroxysmal atrial fibrillation; N40.0 Benign prostatic hyperplasia without lower urinary tract symptoms; Z79.01 Long term (current) use of anticoagulants; Z79.899 Other long term (current) drug therapy; Z80.3 Family history of malignant neoplasm of breast; Z85.51 Personal history of malignant neoplasm of bladder; Z87.891 Personal history of nicotine dependence; Z95.0 Presence of cardiac pacemaker; Z95.2 Presence of prosthetic heart valve; Z96.643 Presence of artificial hip joint, bilateral